=== PATIENT | female | born 1965 | race Caucasian/White ===

== ENCOUNTER 2016-05-07 10:39 | Emergency (ER) | payer OTHER ==
[2016-11-11] MEDS ORDERED: JANUMET XR 50-1 EACH PO (15:04)
[2016-11-11] MEDS ORDERED: EFFEXOR XR150 MG PO (15:04)
[2016-11-11] MEDS ORDERED: LYRICA225 MG PO (15:04)
[2016-11-11] MEDS ORDERED: PRINIVIL20 MG PO (15:05)
[2016-11-11] MEDS ORDERED: VICODIN 10/3251 EACH PO (15:05)
[2016-11-11] MEDS ORDERED: PRAVACHOL40 MG PO (15:05)
[2016-11-11] MEDS ORDERED: [UNRECOGNIZED DRUG - OTHER] PO (15:05)
[2016-11-11] MEDS ORDERED: SYNTHROID25 MCG PO (15:06)
[2016-11-11] MEDS ORDERED: FEOSOL325 MG PO (15:06)
[2016-11-11] MEDS ORDERED: LAXATIVE OF CHOICE (15:06)
[2016-11-11] MEDS ORDERED: PRILOSEC20 MG PO (15:06)
[2016-11-11] MEDS ORDERED: BACLOFEN 10MG T10 MG PO (15:07)
[2016-11-11] MEDS ORDERED: PERCOCET 5-3251 EACH PO (15:07)
[2016-11-11] MEDS ORDERED: XARELTO10 MG PO (15:07)
== END 2016-05-07 12:03 | disposition home or self-care (01) ==
LOC: FER 10:39
DX: M25.461 Effusion, right knee (principal); E11.9 Type 2 diabetes mellitus without complications; I10 Essential (primary) hypertension; Z88.0 Allergy status to penicillin
CPT/HCPCS: 73564; 99283

== ENCOUNTER 2016-11-04 10:30 | Inpatient (IN) | payer OTHER ==
[~2016-11-04] VITALS: Ht 155 cm; Wt 103.0 kg
[2016-11-04 09:31] LABS: BILIRUBIN NEGATIVE (NEGATIVE); BLOOD NEGATIVE Ery/uL (NEGATIVE); COLOR YELLOW (YELLOW); GLUCOSE (U) NORMAL (NORMAL); KETONE (U) TRACE mg/dL (NEGATIVE); LEUKOCYTES 1+ Leu/uL (NEGATIVE); NITRITE NEGATIVE (NEGATIVE); PROTEIN NEGATIVE (NEGATIVE); SPECIFIC GRAVITY >=1.030 (1.001-1.030); UROBILINOGEN 0.2 mg/dL (0.2-1.0); pH 5.5 (5.0-9.0)
[2016-11-04 09:36] LABS: CLARITY HAZY (CLEAR)
[2016-11-04 09:37] LABS: BACTERIA TRACE
[2016-11-05 06:15] LABS: HGB 11.2 g/dl (12.5-16.0); MCH 29.4 pg (25.0-31.0); MCV 91.9 fL (78.0-100.0); MPV 9.5 fL (6.0-9.5); RBC 3.81 M/uL (4.20-5.40); RDW 14.4 % (11.5-14.0); WBC 8.4 K/uL (4.0-10.5)
[2016-11-05 06:49] LABS: CREATININE 0.8 mg/dL (0.5-1.0); MAGNESIUM 1.44 mg/dL (1.40-2.10); PHOSPHORUS 4.5 mg/dL (2.7-4.5); POTASSIUM 4.4 mmol/L (3.5-5.1)
[2016-11-06 05:53] LABS: HCT 34.7 % (37.0-47.0); HGB 10.9 g/dl (12.5-16.0); MCHC 31.4 g/dL (32.0-36.0); MCV 92.3 fL (78.0-100.0); MPV 9.5 fL (6.0-9.5); RBC 3.76 M/uL (4.20-5.40); RDW 14.7 % (11.5-14.0); WBC 6.7 K/uL (4.0-10.5)
[2016-11-06 06:16] LABS: CREATININE 0.9 mg/dL (0.5-1.0); MAGNESIUM 1.54 mg/dL (1.40-2.10); PHOSPHORUS 3.5 mg/dL (2.7-4.5); POTASSIUM 4.5 mmol/L (3.5-5.1)
== END 2016-11-06 14:25 | DRG 470 ==
LOC: FMS 10:30
PROVIDERS: Internal Medicine; ADMIT Legal Medicine
PROC: 0SBC0ZZ Excision of Right Knee Joint, Open Approach (ICD-10-PCS; 2016-11-04)
PROC: 8E0YXBZ Computer Assisted Procedure of Lower Extremity (ICD-10-PCS; 2016-11-04)
PROC: 0SRD0J9 Replacement of Left Knee Joint with Synthetic Substitute, Cemented, Open Approach (ICD-10-PCS; principal; 2016-11-04 12:30)
DX: M17.11 Unilateral primary osteoarthritis, right knee (principal); I10 Essential (primary) hypertension; M71.21 Synovial cyst of popliteal space [Baker], right knee; E11.9 Type 2 diabetes mellitus without complications; I44.7 Left bundle-branch block, unspecified; E03.9 Hypothyroidism, unspecified; M19.90 Unspecified osteoarthritis, unspecified site; M79.7 Fibromyalgia; Z88.0 Allergy status to penicillin; Z22.322 Carrier or suspected carrier of Methicillin resistant Staphylococcus aureus; G47.33 Obstructive sleep apnea (adult) (pediatric); Z79.4 Long term (current) use of insulin
CPT/HCPCS: 36415; 73560; 80048; 80061; 81001; 82962; 83036; 83735; 84100; 86850; 86900; 86901; 94010; 94660; 94762; 97110; 97116; 97162; 97166; 97530-GP; 97535; C1713; C1776; J0131; J1170; J1885; J1940; J2270; J2405; J2704; J2795; J3010